=== PATIENT | female | born 1955 | race Hispanic/Latino ===

== ENCOUNTER 2018-08-03 08:33 | Day surgery (SDC) | payer BC ==
[2018-08-03] MEDS ORDERED: Lactated Ringer's 500 ML IV ONE ×2 (11:33→12:16)
[2018-08-03] MEDS ORDERED: Propofol 10 mg/ml Inj (20 ML) ONE ×2 (11:38→11:55)
[2018-08-03 12:33] VITALS: TEMP 98
[2018-08-03 14:43] VITALS: BP 131/67; PULSE 66; RESP 18; O2SAT 100
== END 2018-08-03 13:30 | disposition home or self-care (01) ==
LOC: C.ENDO 08:33
PROVIDERS: ATTEND Internal Medicine Gastroenterology
DX: Z12.11 Encounter for screening for malignant neoplasm of colon (principal); K64.8 Other hemorrhoids
CPT/HCPCS: 45378; J2704; J7120